=== PATIENT | male | born 1955 | race Caucasian/White ===

== ENCOUNTER 2019-02-05 09:40 | Emergency (ER) | payer OTHER ==
[~2019-02-05] VITALS: Ht 180.3 cm; Wt 80.0 kg
--- NOTE | 2019-02-05 10:04 | NUR ---
Patient brought from [facility] ambulatory with steady gait, placed in gown. reports LUQ pain x 5 days.
--- NOTE | 2019-02-05 10:17 | NUR ---
PT AMBULATORY TO ROOM 1 W/ C/O ABD PAIN TO L MID QUADRANT STARTED 4-5 DAYS AGO. STATES MILDLY IMPROVED BUT PT STATES HE WANTS TO GET CHECKED OUT TO ENSURE NO ISSUES. PT DENIES ANY ABD SURGERIES. PT RESTING ON GURNEY. NADN. VSS. MONITORS APPLIED. WARM BLANET PROVIDED.
[2019-02-05 10:57] LABS: MICROSCOPIC NOT IND
[2019-02-05 11:00] LABS: CULTURE INDICATED? NO
[2019-02-05] MEDS ORDERED: SODIUM CHLORIDE FLUSH 10ML SYR IVF ONE (11:00)
--- NOTE | 2019-02-05 11:01 | NUR ---
PT RESTING ON GURNEY. NADN. FERRER.
[2019-02-05 11:07] LABS: ALANINE AMINOTRANSFERASE 40 U/L (12-78); ANION GAP 7 mmol/L (5-15); CALCIUM 8.5 mg/dL (8.5-10.1); CHLORIDE 105 mmol/L (98-107); CREATININE 0.95 mg/dL (0.7-1.3)
[2019-02-05 11:10] LABS: ALKALINE PHOSPHATASE 71 U/L (45-117); BILIRUBIN,TOTAL 0.9 mg/dL (0.2-1.0); TOTAL PROTEIN 7.2 g/dL (6.4-8.2)
[2019-02-05 11:12] LABS: BASOPHILS # (AUTO) 0.05 x10^3/uL (0-0.1); BASOPHILS % (AUTO) 1 % (0-1); EOSINOPHILS # (AUTO) 0.03 x10^3/uL (0-0.4); EOSINOPHILS % (AUTO) 0 % (1-7); LYMPHOCYTES # (AUTO) 0.84 x10^3/uL (1-3.4); LYMPHOCYTES % (AUTO) 9 % (22-44); MD NO; MEAN CORPUSCULAR HEMOGLOBIN 32.6 pg (27.5-34.5); MEAN CORPUSCULAR HGB CONC 33.4 g/dL (33.2-36.2); MEAN CORPUSCULAR VOLUME 97.4 fL (81-97); MEAN PLATELET VOLUME 7.5 fL (7.4-10.4); MONOCYTES # (AUTO) 0.85 x10^3/uL (0.2-0.8); MONOCYTES % (AUTO) 9 % (2-9); NEUTROPHILS # (AUTO) 7.89 x10^3/uL (1.8-6.8); NEUTROPHILS % (AUTO) 82 % (42-75); PLATELET COUNT 208 x10^3/uL (130-400); RED BLOOD COUNT 4.63 x10^6/uL (4.38-5.82); RED CELL DISTRIBUTION WIDTH 12.3 % (9.4-14.8)
--- NOTE | 2019-02-05 11:43 | NUR ---
PT RESTING ON GURNEY. NADN. FERRER.
[2019-02-05] MEDS ORDERED: OMNIPAQUE 350 MG/ML, 100ML BOTTLE ONE (12:48)
[2019-02-05 13:19] VITALS: BP 159/90
[2019-02-05] MEDS ORDERED: CEFTRIAXONE PMX 1GM/50ML 50 ML ONE (13:21)
[2019-02-05] MEDS ORDERED: metroNIDAZOLE 500 MG TABLET ONE (13:21)
[2019-02-05] MEDS ORDERED: metroNIDAZOLE 500 MG TABLET PO ONE (13:30)
[2019-02-05] MEDS ORDERED: CEFTRIAXONE PMX 1GM/50ML 50 ML IV ONE (13:30)
--- NOTE | 2019-02-05 13:40 | NUR ---
REPORT GIVEN TO NETTE CEDENO.
--- NOTE | 2019-02-05 13:41 | NUR ---
RECEIVED BEDSIDE REPORT FROM NETTE COTTON. ASSUMING PT CARE AT THIS TIME. PT NOW BACK FROM IMAGING. Addendum: 02/05/19 at 1342 by JARRELL PT WAS NEVER AT IMAGING. PT RESTING ON GURNEY. NO ACUTE DISTRESS NOTED.
--- NOTE | 2019-02-05 14:12 | NUR ---
Patient/Caregiver given discharge instructions and they have confirmed that they understand the instructions. Patient ambulatory with steady gait. PT LEFT WITH ALL PERSONAL BELONGINGS.
== END 2019-02-05 14:14 | disposition home or self-care (01) ==
LOC: ED 10:34
DX: K57.32 Diverticulitis of large intestine without perforation or abscess without bleeding (principal); R10.32 Left lower quadrant pain; I10 Essential (primary) hypertension
CPT/HCPCS: 36415; 74177; 80053; 81003; 85025; 96365; 99284; J0696; Q9967

== ENCOUNTER → 2019-12-03 | Outpatient (CLI) | payer OTHER ==
[~2019-12-03] MED LIST: ATOR-2 PO; ATOR10TA9 PO; LISI5TAB7 PO; [UNRECOGNIZED DRUG - OTHER] SC
== END | disposition home or self-care (01) ==
LOC: CFH 12:32
PROVIDERS: ATTEND Internal Medicine Cardiovascular Disease
DX: I25.9 Chronic ischemic heart disease, unspecified (principal); I10 Essential (primary) hypertension; I25.10 Atherosclerotic heart disease of native coronary artery without angina pectoris; R29.898 Other symptoms and signs involving the musculoskeletal system
CPT/HCPCS: 78452; 93017; A9502

== ENCOUNTER 2019-12-05 07:56 | Inpatient (IN) | payer OTHER ==
[~2019-12-05] VITALS: Ht 180.3 cm; Wt 86.8 kg
[2019-12-05] MEDS ORDERED: ATOR10TA9 PO ×2 (08:10→08:51)
[2019-12-05] MEDS ORDERED: ATOR-2 PO (08:10)
--- NOTE | 2019-12-05 08:10 | NUR ---
CODE CARDIAC CANCELLED, PER DR BURGOS, PT TO BE ADMITTED AND HAVE ANGIOGRAM TOMORROW. PT MOVED FROM TR3 TO ROOM 19.
[2019-12-05] MEDS ORDERED: [UNRECOGNIZED DRUG - OTHER] SC (08:17)
[2019-12-05 08:18] LABS: BASOPHILS # (AUTO) 0.01 x10^3/uL (0-0.1); BASOPHILS % (AUTO) 0 % (0-1); EOSINOPHILS # (AUTO) 0.05 x10^3/uL (0-0.4); EOSINOPHILS % (AUTO) 1 % (1-7); LYMPHOCYTES # (AUTO) 1.01 x10^3/uL (1-3.4); LYMPHOCYTES % (AUTO) 18 % (22-44); MD NO; MEAN CORPUSCULAR HEMOGLOBIN 32.4 pg (27.5-34.5); MEAN CORPUSCULAR HGB CONC 33.1 g/dL (33.2-36.2); MEAN CORPUSCULAR VOLUME 97.8 fL (81-97); MEAN PLATELET VOLUME 7.4 fL (7.4-10.4); MONOCYTES # (AUTO) 0.56 x10^3/uL (0.2-0.8); MONOCYTES % (AUTO) 10 % (2-9); NEUTROPHILS # (AUTO) 3.95 x10^3/uL (1.8-6.8); NEUTROPHILS % (AUTO) 71 % (42-75); PLATELET COUNT 152 x10^3/uL (130-400); RED BLOOD COUNT 4.96 x10^6/uL (4.38-5.82); RED CELL DISTRIBUTION WIDTH 12.5 % (9.4-14.8)
[2019-12-05 08:26] LABS: INTERNATIONAL NORMALIZED RATIO 1.02 (0.93-1.1); PROTHROMBIN TIME 10.5 Seconds (9.6-11.5)
[2019-12-05] MEDS ORDERED: NITROGLYCERIN 0.4 MG/SPRAY SL PRN (08:30)
[2019-12-05] MEDS ORDERED: NITROGLYCERIN 0.4 MG BOTTLE (25 TABS) SL PRN (08:30)
[2019-12-05] MEDS ORDERED: ACETAMINOPHEN 650 MG/20.3 ML UDC PO PRN (08:30)
[2019-12-05] MEDS ORDERED: ONDANSETRON 2MG/ML, 2ML IV PRN (08:30)
[2019-12-05] MEDS ORDERED: ZOLPIDEM 5MG TABLET PO PRN (08:30)
[2019-12-05] MEDS ORDERED: BISACODYL 5 MG EC TABLET PO PRN (08:30)
[2019-12-05 08:32] LABS: TROPONIN I < 0.015 ng/mL (0.000-0.045)
[2019-12-05] MEDS ORDERED: LISI5TAB7 PO (08:51)
--- NOTE | 2019-12-05 08:52 | NUR ---
MED DOSAGE CLARIFIED WITH PT/UPDATED ON MED REC.
--- NOTE | 2019-12-05 08:58 | NUR ---
ATTEMPT TO CALL REPORT, AWAITING CALL BACK FROM ACCEPTING RN.
[2019-12-05] MEDS ORDERED: LISINOPRIL 10 MG TABLET PO SCH (09:00)
--- NOTE | 2019-12-05 09:18 | NUR ---
REPORT TO [facility]BIKA NAM READY FOR TRANSPORT.
[2019-12-05 09:53] VITALS: BP 198/93
[2019-12-05] MEDS ORDERED: METOPROLOL TARTRATE 25 MG TAB ONE (10:38)
[2019-12-05] MEDS: ENOXAPARIN 40 MG/0.4 ML SQ SCH (10:49)
[2019-12-05] MEDS: SODIUM CHLORIDE FLUSH 10ML SYR IVF SCH ×2 (10:58→19:59)
[2019-12-05 11:01] VITALS: BP 167/84
[2019-12-05 13:54] LABS: TROPONIN I < 0.015 ng/mL (0.000-0.045)
[2019-12-05 14:31] VITALS: BP 126/72
[2019-12-05] MEDS: METOPROLOL TARTRATE 25 MG TAB PO SCH (18:00)
[2019-12-05] MEDS: ATORVASTATIN 80 MG TABLET PO SCH (19:59)
[2019-12-05 20:04] VITALS: BP 138/77
[2019-12-05 20:54] LABS: TROPONIN I < 0.015 ng/mL (0.000-0.045)
[2019-12-05] MEDS: TRAZODONE 50MG TABLET PO PRN (22:16)
[2019-12-06] MEDS: METOPROLOL TARTRATE 25 MG TAB PO SCH ×2 (03:33→17:48)
[2019-12-06 03:51] VITALS: BP 93/59
[2019-12-06 05:16] LABS: MEAN CORPUSCULAR HEMOGLOBIN 32.6 pg (27.5-34.5); MEAN CORPUSCULAR HGB CONC 33.5 g/dL (33.2-36.2); MEAN CORPUSCULAR VOLUME 97.3 fL (81-97); MEAN PLATELET VOLUME 7.7 fL (7.4-10.4); PLATELET COUNT 125 x10^3/uL (130-400); RED BLOOD COUNT 4.58 x10^6/uL (4.38-5.82); RED CELL DISTRIBUTION WIDTH 12.6 % (9.4-14.8)
[2019-12-06 05:24] LABS: ANION GAP 7 mmol/L (5-15); CALCIUM 8.5 mg/dL (8.5-10.1); CHLORIDE 111 mmol/L (98-107); CHOLESTEROL, TOTAL 124 mg/dL (140-239); CREATININE 0.88 mg/dL (0.7-1.3); TRIGLYCERIDES 132 mg/dL (50-200); VLDL CHOLESTEROL 26 mg/dL (0-25)
[2019-12-06 05:29] LABS: HDL CHOL % 34 % (26-37); HDL CHOLESTEROL (DIRECT) 42 mg/dL (40-60); LDL CHOLESTEROL,CALCULATED 56 mg/dL (54-169); LDL/HDL RATIO 1.3 (0.5-3.0)
[2019-12-06 07:10] VITALS: BP 121/76
[2019-12-06] MEDS: ENOXAPARIN 40 MG/0.4 ML SQ SCH (07:16)
[2019-12-06] MEDS: LISINOPRIL 20 MG TABLET PO SCH (08:04)
[2019-12-06] MEDS: ASPIRIN 325 MG TABLET EC PO SCH (08:04)
[2019-12-06] MEDS: SODIUM CHLORIDE FLUSH 10ML SYR IVF SCH ×2 (08:05→20:25)
[2019-12-06] MEDS: SODIUM CHLORIDE 0.9% 1,000 ML IV SCH ×2 (10:26→17:48)
[2019-12-06 12:08] VITALS: BP 130/75
[2019-12-06] MEDS ORDERED: FENTANYL PF 100 MCG/2ML ONE (13:32)
[2019-12-06] MEDS ORDERED: MIDAZOLAM 1 MG/ML, 5ML ONE (13:32)
[2019-12-06] MEDS ORDERED: NITROGLYCERIN 30 MCG/ML, 20ML VIAL ONE (13:32)
[2019-12-06] MEDS ORDERED: HEPARIN 1,000 UNITS/ML, 10ML ONE (13:32)
[2019-12-06] MEDS ORDERED: BIVALIRUDIN 250 MG ONE (13:32)
[2019-12-06] MEDS ORDERED: CLOPIDOGREL 300 MG TABLET ONE (13:32)
[2019-12-06] MEDS ORDERED: VERAPAMIL 2.5 MG/ML, 2ML ONE (13:32)
[2019-12-06] MEDS ORDERED: LIDOCAINE-MPF 1%, 5ML ONE (13:32)
[2019-12-06] MEDS ORDERED: PRASUGREL 10 MG TABLET ONE (14:52)
[2019-12-06] MEDS ORDERED: BIVALIRUDIN 250 MG in SODIUM CHLORIDE 0.9% 50 ML IV SCH (15:07)
[2019-12-06 18:40] VITALS: BP 132/76
[2019-12-06] MEDS: TRAZODONE 50MG TABLET PO PRN (20:24)
[2019-12-06] MEDS: ATORVASTATIN 80 MG TABLET PO SCH (20:24)
[2019-12-07 00:52] VITALS: BP 132/82
[2019-12-07] MEDS: SODIUM CHLORIDE 0.9% 1,000 ML IV SCH ×2 (02:00→08:35)
[2019-12-07 05:45] LABS: CHLORIDE 110 mmol/L (98-107)
[2019-12-07 05:50] LABS: ANION GAP 8 mmol/L (5-15); CALCIUM 8.8 mg/dL (8.5-10.1); CREATININE 0.82 mg/dL (0.7-1.3)
[2019-12-07] MEDS: METOPROLOL TARTRATE 25 MG TAB PO SCH (06:00)
[2019-12-07] MEDS: ASPIRIN 325 MG TABLET EC PO SCH (06:30)
[2019-12-07 07:15] VITALS: BP 124/75
[2019-12-07] MEDS ORDERED: ATOR-2 PO (08:05)
[2019-12-07] MEDS ORDERED: ASPI81TA45 PO (08:05)
[2019-12-07] MEDS ORDERED: LISI-167 PO (08:05)
[2019-12-07] MEDS ORDERED: PRAS10TA4 PO (08:05)
[2019-12-07] MEDS ORDERED: NITR0.4T28 SL (08:05)
[2019-12-07] MEDS ORDERED: ALPR0.5T6 PO (08:05)
[2019-12-07] MEDS: LISINOPRIL 20 MG TABLET PO SCH (08:22)
[2019-12-07] MEDS: SODIUM CHLORIDE FLUSH 10ML SYR IVF SCH (08:22)
[2019-12-07] MEDS ORDERED: PRASUGREL 10 MG TABLET PO SCH (09:00)
[2019-12-07] MEDS: ENOXAPARIN 40 MG/0.4 ML SQ SCH (11:15)
[2019-12-08] MEDS ORDERED: ASPIRIN 81 MG TABLET EC PO SCH (06:00)
== END 2019-12-07 11:35 | disposition home or self-care (01) | DRG 247 ==
LOC: ED 08:48 → EDIP 09:13 → 5SO 09:54 → DCLOUNGE 12-07 11:22
PROVIDERS: ADMIT Internal Medicine Cardiovascular Disease; ATTEND Internal Medicine Cardiovascular Disease
PROC: 027034Z Dilation of Coronary Artery, One Artery with Drug-eluting Intraluminal Device, Percutaneous Approach (ICD-10-PCS; principal; 2019-12-06)
PROC: 4A023N7 Measurement of Cardiac Sampling and Pressure, Left Heart, Percutaneous Approach (ICD-10-PCS; 2019-12-06)
PROC: B2111ZZ Fluoroscopy of Multiple Coronary Arteries using Low Osmolar Contrast (ICD-10-PCS; 2019-12-06)
PROC: B2151ZZ Fluoroscopy of Left Heart using Low Osmolar Contrast (ICD-10-PCS; 2019-12-06)
DX: I25.10 Atherosclerotic heart disease of native coronary artery without angina pectoris (principal); I24.9 Acute ischemic heart disease, unspecified; I10 Essential (primary) hypertension; F41.9 Anxiety disorder, unspecified; E78.49 Other hyperlipidemia; R00.1 Bradycardia, unspecified; R06.00 Dyspnea, unspecified; Z87.891 Personal history of nicotine dependence
CPT/HCPCS: 36415; 93458; C9600; 71045; 80047; 80048; 80061; 84484; 85025; 85027; 85610; 85730; 93005; 93306; 99156; 99157; C1769; C1894; G0378; J0583; J1644; J1650; J2250; J3010; C1725; C1874; C1887; J7030; Q9967

== ENCOUNTER 2020-01-11 06:35 | Outpatient (CLI) | payer OTHER ==
[~2020-01-11 06:35] MED LIST changes: +ALPR0.5T6 PO; +ASPI81TA45 PO; +LISI-167 PO; +NITR0.4T28 SL; +PRAS10TA4 PO
== END 2020-01-11 23:59 | disposition home or self-care (01) ==
LOC: CVU 06:35
PROVIDERS: ATTEND Internal Medicine Cardiovascular Disease
DX: I65.23 Occlusion and stenosis of bilateral carotid arteries (principal); I25.10 Atherosclerotic heart disease of native coronary artery without angina pectoris
CPT/HCPCS: 93880